=== PATIENT | male | born 1975 | race Hispanic/Latino ===

== ENCOUNTER 2022-08-11 17:50 | Emergency (ER) | payer SELFPAY ==
--- NOTE | 2022-08-11 18:36 | RAD REPORT ---
EXAM DESCRIPTION: CT - CTHCSPWOC - 08/11/2022 6:23 pm CLINICAL HISTORY: Trauma, head and neck injury. TRAUMA COMPARISON: No comparisons TECHNIQUE: Axial 5 mm thick images of the head were obtained. Axial 2 mm thick images of the cervical spine were obtained with sagittal and coronal reconstruction images generated and reviewed. All CT scans are performed using dose optimization technique as appropriate and may include automated exposure control or mA/KV adjustment according to patient size. FINDINGS: CT HEAD WITHOUT CONTRAST: No acute hemorrhage, hydrocephalus or extra-axial collection is identified.No areas of brain edema or midline shift. Left parietal scalp hematoma. The paranasal sinuses and mastoids are clear.The calvarium is intact. CT CERVICAL SPINE WITHOUT CONTRAST: No fracture or subluxation.No prevertebral soft tissues swelling is identified. IMPRESSION: No acute intracranial or cervical spine findings.
--- NOTE | 2022-08-11 19:11 | RAD REPORT ---
EXAM DESCRIPTION: RAD - Hip Left 2 View - 08/11/2022 6:46 pm CLINICAL HISTORY: PAIN COMPARISON: No comparisons FINDINGS/IMPRESSION: No acute fracture. No malalignment. Mild left acetabular degenerative changes.
--- NOTE | 2022-08-11 19:12 | RAD REPORT ---
EXAM DESCRIPTION: RAD - Pelvis - 08/11/2022 6:46 pm CLINICAL HISTORY: TRAUMA COMPARISON: Hip Left 2 View dated 08/11/2022 FINDINGS/IMPRESSION: No acute fracture. No malalignment. Femoral heads are smooth in contour. Portio ns of the sacrum are obscured by bowel contents.
--- NOTE | 2022-08-11 19:16 | EDPHYS ---
Physician Documentation [facility] Name: Barry Diego Age: 46 yrs Sex: Male : 1975 Arrival Date: 08/11/2022 Time: 17:52 Bed 13 Private MD: ED Physician Guicho Blanco HPI: 08/11 18:06 This 46 yrs old Male presents to ER via Ambulatory with complaints of Fall kb Injury, Head Injury-Adult, Dizziness, Back Pain. 18:06 Details of fall: The patient fell from a height, from a ladder, approximately 6 feet. kb Onset: The symptoms/episode began/occurred just prior to arrival. Associated injuries: The patient sustained injury to the head, hematoma, pain, left low back, painful injury. Severity of symptoms: At their worst the symptoms were moderate, in the emergency department the symptoms are unchanged. The patient has not experienced similar symptoms in the past. The patient has not recently seen a physician. Historical: - Allergies: 17:57 No Known Allergies; aa5 - PMHx: 17:57 Hypertensive disorder; aa5 - PSHx: 17:57 None; aa5 - Immunization history:: Adult Immunizations unknown. - Social history:: Smoking status: Patient reports the use of cigarette tobacco products, denies chronic smoking, but will smoke occasionally. ROS: 18:03 Constitutional: Negative for fever, chills, and weight loss. kb 18:03 Back: Positive for pain at rest, pain with movement, of the left low back. 18:03 Neuro: Positive for dizziness, headache. 18:03 All other systems are negative. Exam: 18:03 Constitutional: This is a well developed, well nourished patient who is awake, alert, kb and in no acute distress. Head/Face: Normocephalic, atraumatic. ENT: Moist Mucous membranes Cardiovascular: Regular rate and rhythm with a normal S1 and S2. No gallops, murmurs, or rubs. No pulse deficits. Respiratory: Respirations even and unlabored. No increased work of breathing. Talking in full sentences Abdomen/GI: Soft, non-tender. No distention Skin: Warm, dry with normal turgor. Normal color. Neuro: Awake and alert, GCS 15, oriented to person, place, time, and situation. Moves all extremities. Normal gait. Psych: Awake, alert, with orientation to person, place and time. Behavior, mood, and affect are within normal limits. 18:03 Back: pain, that is moderate, of the left low back, ROM is normal, normal spinal alignment noted. 18:03 Musculoskeletal/extremity: Extremities: grossly normal except: noted in the left low back: pain, ROM: no acute changes, Circulation is intact in all extremities. Sensation intact. Vital Signs: 17:57 BP 129 / 80; Pulse 69; Resp 18 S; Temp 98.2(TE); Pulse Ox 97% on R/A; Weight 99.79 kg aa5 (R); Height 5 ft. 7 in. (170.18 cm) (R); 17:57 Body Mass Index 34.46 (99.79 kg, 170.18 cm) aa5 MDM: 17:59 Patient medically screened. kb 18:04 Differential diagnosis: closed head injury, fracture, strain. Data reviewed: vital kb signs, nurses notes. ED course: Patient is a 46-year-old male who fell off of a ladder approximately 6 feet landing on back and hitting head. Denies LOC. Reports headache, dizziness, left low back/hip pain. Ambulates with steady gait. Will obtain CT head C-spine and x-ray of the pelvis and left hip to rule out ICH and fracture.. 19:14 Counseling: I had a detailed discussion with the patient and/or guardian regarding: the kb historical points, exam findings, and any diagnostic results supporting the discharge/admit diagnosis, radiology results, the need for outpatient follow up, a family practitioner, to return to the emergency department if symptoms worsen or persist or if there are any questions or concerns that arise at home. 08/11 18:02 Order name: CT Head C Spine kb 08/11 18:02 Order name: Pelvis XRAY kb 08/11 18:02 Order name: Hip Left 2 View XRAY kb 08/11 18:36 Order name: CT; Complete Time: 18:38 EDMS 08/11 19:12 Order name: RAD; Complete Time: 19:12 EDMS 08/11 19:12 Order name: RAD; Complete Time: 19:12 EDMS Administered Medications: 19:26 Drug: [place] (HYDROcodone-acetaminophen) 10 mg-325 mg 1 tabs Route: PO; hb 19:26 Follow up: Response: Medication administered at discharge. Disposition Summary: 08/11/22 19:15 Discharge Ordered Location: Home kb Condition: Stable kb Diagnosis - Unspecified injury of head, initial encounter kb - Low back pain kb - Fall (on) (from) other stairs and steps - ladder, 6ft kb Followup: kb - With: Emergency Department - When: As needed - Reason: Worsening of condition Followup: kb - With: Private Physician - When: 2 - 3 days - Reason: Recheck today's complaints, Continuance of care, Re-evaluation by your physician Discharge Instructions: - Discharge Summary Sheet kb - Hematoma, [id number] kb - Musculoskeletal Pain kb - Head Injury, Adult, [id number] kb Forms: - Medication Reconciliation Form kb - Thank You Letter kb - Antibiotic Education kb - Prescription Opioid Use kb Prescriptions: - Diclofenac Sodium 75 mg Oral tablet,delayed release (DR/EC) - take 1 tablet by ORAL route 2 times per day As needed; 30 tablet; Refills: 0, kb Product Selection Permitted - orphenadrine citrate 100 mg Oral Tablet Sustained Release - take 1 tablet by ORAL route 2 times per day As needed; 20 tablet; Refills: 0, kb Product Selection Permitted Addendum: 08/12/2022 20:20 Co-signature as Attending Physician, Guicho Blanco MD I reviewed the patient's care r t provided by the Advanced Practice Provider and agree with the diagnosis and treatment plan. Signatures: Dispatcher [employer] Lary Ye, INSTITUTIONAL CUSTODIAN-C LYNNE-Graciela Bennett RN RN aa5 Luanne Stearns RN RN Guicho Blanco MD MD rt
--- NOTE | 2022-08-11 19:16 | ER ---
Nurse's Notes [facility] Name: Barry Diego Age: 46 yrs Sex: Male : 1975 Arrival Date: 08/11/2022 Time: 17:52 Bed 13 Private MD: Diagnosis: Unspecified injury of head, initial encounter;Low back pain;Fall (on) (from) other stairs and steps-ladder, 6ft Presentation: 08/11 17:57 Chief complaint: Patient states: "I fell off about 6 ft from a ladder and landed on my aa5 back, I hit my head and I have a bump on the top of my head". Denies LOC, denies nausea/vomiting. Coronavirus screen: At this time, the client does not indicate any symptoms associated with coronavirus-19. Ebola Screen: Patient denies travel to an Ebola-affected area in the 21 days before illness onset. Initial Sepsis Screen: Does the patient meet any 2 criteria? No. Patient's initial sepsis screen is negative. Does the patient have a suspected source of infection? No. Patient's initial sepsis screen is negative. Risk Assessment: Do you want to hurt yourself or someone else? Patient reports no desire to harm self or others. Onset of symptoms was August 11, 2022. 17:57 Acuity: ROBERT 2 aa5 17:57 Method Of Arrival: Ambulatory aa5 17:57 Care prior to arrival: None. Mechanism of Injury: Fall from ladder. Trauma event aa5 details: Injury occurred in the [facility], Injury occurred: at home. Injury occurred: August 11, 2022. Historical: - Allergies: 17:57 No Known Allergies; aa5 - PMHx: 17:57 Hypertensive disorder; aa5 - PSHx: 17:57 None; aa5 - Immunization history:: Adult Immunizations unknown. - Social history:: Smoking status: Patient reports the use of cigarette tobacco products, denies chronic smoking, but will smoke occasionally. Screenin:26 [facility] ED Fall Risk Assessment (Adult) Score/Fall Risk Level 3 or more points = High hb Risk Oriented to surroundings, Maintained a safe environment, Educated pt \\T\\ family on fall prevention, incl call for assistance when getting out of bed. Abuse screen: Denies threats or abuse. Denies injuries from another. Nutritional screening: No deficits noted. Tuberculosis screening: No symptoms or risk factors identified. Assessment: 18:25 General: Appears in no apparent distress. Behavior is calm, cooperative. Pain: Pain hb currently is 5 out of 10 on a pain scale. Neuro: Level of Consciousness is awake, alert, obeys commands, Oriented to person, place, time, situation, Reports dizziness. Cardiovascular: Patient's skin is warm and dry. Respiratory: Respiratory effort is even, unlabored, Respiratory pattern is regular, symmetrical. GI: No signs and/or symptoms were reported involving the gastrointestinal system. : No signs and/or symptoms were reported regarding the genitourinary system. EENT: No signs and/or symptoms were reported regarding the EENT system. Derm: Skin is pink, warm \\T\\ dry. Musculoskeletal: No signs and/or symptoms reported regarding the musculoskeletal system. Vital Signs: 17:57 BP 129 / 80; Pulse 69; Resp 18 S; Temp 98.2(TE); Pulse Ox 97% on R/A; Weight 99.79 kg aa5 (R); Height 5 ft. 7 in. (170.18 cm) (R); 17:57 Body Mass Index 34.46 (99.79 kg, 170.18 cm) aa5 ED Course: 17:52 Patient arrived in ED. am2 17:57 Arm band placed on. aa5 17:58 Lary Sears [facility]-C [facility] kb 17:59 Guicho Blanco MD is Attending Physician. kb 17:59 Triage completed. aa5 18:02 Luanne Stearns, RN is Primary Nurse. hb 18:26 Patient has correct armband on for positive identification. hb 19:26 No provider procedures requiring assistance completed. Patient did not have IV access hb during this emergency room visit. Administered Medications: 19:26 Drug: [place] (HYDROcodone-acetaminophen) 10 mg-325 mg 1 tabs Route: PO; hb 19:26 Follow up: Response: Medication administered at discharge. hb Medication: 18:26 VIS not applicable for this client. hb Outcome: 19:15 Discharge ordered by . kb 19:26 Discharged to home ambulatory. hb 19:26 Condition: good 19:26 Discharge instructions given to patient. 19:27 Patient left the ED. hb Signatures: Lary Sears FNP-C FNP-Graciela Bennett, RN RN aa5 Luanne Stearns, RN RN hb Prabhu, Liya am2
[2022-08-11] MEDS ORDERED: HYDROCODONE/APAP 10/325 TAB ONE (19:26)
[2022-08-11 19:33] VITALS: BP 129/80; TEMP 98.2; O2SAT 97
== END 2022-08-11 19:27 | disposition home or self-care (01) ==
LOC: ER 17:50
DX: S09.90XA Unspecified injury of head, initial encounter (principal); M54.50 Low back pain, unspecified; W11.XXXA Fall on and from ladder, initial encounter
CPT/HCPCS: 70450; 72125; 72170; 99283